=== PATIENT | male | born 1970 | race Caucasian/White ===

== ENCOUNTER 2018-12-25 21:09 | Emergency (ER) | payer OTHER ==
[2018-12-25] MEDS ORDERED: Ibuprofen 200 MG TAB ONE ×2 (21:39)
--- NOTE | 2018-12-25 22:00 | RAD ---
XR Ankle Lt 3 View STANDARD History: Ankle pain Comparison: None. Findings: High-grade of lateral malleolus soft tissue swelling. No acute fracture is appreciated. No lateral talar shift. Impression: Lateral ankle sprain without acute fracture.
== END 2018-12-25 22:35 ==
LOC: ERS 21:09 → EEVIPCON 21:09 → ERS 22:35
DX: S93.402A Sprain of unspecified ligament of left ankle, initial encounter (principal); E03.9 Hypothyroidism, unspecified; E78.5 Hyperlipidemia, unspecified; E78.00 Pure hypercholesterolemia, unspecified; I10 Essential (primary) hypertension; Z79.899 Other long term (current) drug therapy; W18.30XA Fall on same level, unspecified, initial encounter